=== PATIENT | male | born 1965 | race Caucasian/White ===

== ENCOUNTER 2019-09-07 19:20 | Emergency (ER) | payer OTHER ==
[~2019-09-07] VITALS: Ht 177.8 cm; Wt 81.6 kg
[2019-09-07 19:26] VITALS: BP 112/63
--- NOTE | 2019-09-07 19:30 | NUR ---
STEPHANIE SON TO [facility]
[2019-09-07] MEDS ORDERED: NACL 0.9% 1,000 ML IV ONE ×2 (19:35→21:00)
--- NOTE | 2019-09-07 19:45 | NUR ---
PT ASSESSMENT COMPLETE. SEIZURE PADS IN PLACE. BED IN LOWEST POSITION. WILL CONTINUE TO MONITOR.
[2019-09-07 20:12] LABS: ANION GAP 16.3 (8-16); CARBON DIOXIDE 24.7 mmol/L (21-32); CREATININE 1.4 mg/dL (0.6-1.3)
[2019-09-07 20:20] LABS: ALBUMIN 3.4 g/dL (3.4-5.0); TOTAL BILIRUBIN 0.4 mg/dL (0.0-1.0)
--- NOTE | 2019-09-07 20:45 | NUR ---
PT UP TO ROADTEST, PT GAIT NOTED TO BE UNSTEADY AT THIS TIME. WILL ATTEMPT TO ROADTEST AGAIN.
--- NOTE | 2019-09-07 21:00 | NUR ---
NO HOMELESS ASSESSMENT NECESSARY AT THIS TIME.
--- NOTE | 2019-09-07 21:00 | NUR ---
PT ALCOHOL LEVEL ABOVE 300. ERMD NOTIFIED. NEW ORDER FOR 1L NS BOLUS. ORDER CARRIED OUT.
--- NOTE | 2019-09-07 21:08 | NUR ---
PT YELLING AND AGGRESSIVE STATING " I WANNA LEAVE." PT UP AND AMBULATING WITH STEADY GAIT IN ER. ERMD NOTIFIED.
--- NOTE | 2019-09-07 21:15 | NUR ---
PT STATES HE HAS A RIDE HOME. TO A/W DISCHARGE PAPERWORK AT THIS TIME.
[2019-09-07 21:21] VITALS: BP 112/63
--- NOTE | 2019-09-07 21:21 | NUR ---
Patient discharged with v/s stable. Written and verbal after care instructions given and explained. Patient verbalized understanding. Ambulatory with steady gait. All questions addressed prior to discharge. Advised to follow up with PMD. PT PROVIDED W/ ALCOHOL RESOURCE PACKET AND BUS PASS.
== END 2019-09-07 21:21 | disposition home or self-care (01) ==
LOC: EDBD 19:20 → MED 19:20
DX: F10.129 Alcohol abuse with intoxication, unspecified (principal); I10 Essential (primary) hypertension; R56.9 Unspecified convulsions; Z88.6 Allergy status to analgesic agent
CPT/HCPCS: 36415; 80053; 99283; G0482; J7030

== ENCOUNTER 2020-05-04 17:36 | Emergency (ER) | payer OTHER ==
[~2020-05-04] VITALS: Ht 170.2 cm; Wt 71.7 kg
[2020-05-04 17:38] VITALS: BP 140/92
[2020-05-04 18:59] VITALS: BP 140/92
== END 2020-05-04 19:00 | disposition home or self-care (01) ==
LOC: MED 17:36
DX: S01.112A Laceration without foreign body of left eyelid and periocular area, initial encounter (principal); S09.8XXA Other specified injuries of head, initial encounter; M79.602 Pain in left arm; F10.129 Alcohol abuse with intoxication, unspecified; W18.39XA Other fall on same level, initial encounter; Y93.89 Activity, other specified; Y92.89 Other specified places as the place of occurrence of the external cause; Y99.8 Other external cause status; Y90.9 Presence of alcohol in blood, level not specified
CPT/HCPCS: 12001; 99283

== ENCOUNTER 2020-08-13 16:42 | Emergency (ER) | payer OTHER, SELFPAY ==
[~2020-08-13] VITALS: Ht 177.8 cm; Wt 77.1 kg
[2020-08-13 16:42] VITALS: BP 133/85
[~2020-08-13 16:42] MED LIST: FOLI1TAB90 PO; LEVE1000 PO; MAGN400T61 PO; THIA-34 PO
--- NOTE | 2020-08-13 16:47 | NUR ---
DR ASENCIO AT BEDSIDE EXAMINING PATIENT
[2020-08-13] MEDS ORDERED: BACITRACIN OINT 500 UNITS/GM PKT TP ONE (16:50)
--- NOTE | 2020-08-13 16:55 | NUR ---
55/M biba with c/o fall. Per EMS patient was discharged from a rehab today and consumed alcohol, patient states he tripped on a curb. Fall was unwitnessed, bystanders called 911, abrasions noted to forehead and nose, and healing laceration on left eyebrow. Bleeding controlled at this time, site is tender to touch. Patient describes it as a 10/10 constant pain to the face, denies LOC. Patient able to answer questions when spoken to.
--- NOTE | 2020-08-13 17:01 | NUR ---
PATIENT TAKEN TO CT VIA ACE
[2020-08-13] MEDS ORDERED: BACI1PAC6 TP (17:46)
--- NOTE | 2020-08-13 18:40 | NUR ---
Patient refusing to leave, security called to assist.
[2020-08-13 18:49] VITALS: BP 136/92
--- NOTE | 2020-08-13 18:50 | NUR ---
Patient discharged with v/s stable. Written and verbal after care instructions given and explained. Patient alert, oriented and verbalized understanding of instructions. Wheel Chair Assisted to lobby. All questions addressed prior to discharge. ID band removed. Patient advised to follow up with PMD. Rx of given. Patient educated on indication of medication including possible reaction and side effects. Opportunity to ask questions provided and answered.
== END 2020-08-13 18:49 | disposition home or self-care (01) ==
LOC: MED 16:42
DX: S01.419A Laceration without foreign body of unspecified cheek and temporomandibular area, initial encounter (principal); F10.129 Alcohol abuse with intoxication, unspecified; J45.909 Unspecified asthma, uncomplicated; I10 Essential (primary) hypertension; Z88.6 Allergy status to analgesic agent; Z86.73 Personal history of transient ischemic attack (TIA), and cerebral infarction without residual deficits; W19.XXXA Unspecified fall, initial encounter; Y93.89 Activity, other specified; Y92.89 Other specified places as the place of occurrence of the external cause; Y99.8 Other external cause status
CPT/HCPCS: 70450; 72125; 90471; 90715; 99285

== ENCOUNTER 2021-10-25 20:13 | Emergency (ER) | payer OTHER ==
[~2021-10-25] VITALS: Ht 175.3 cm; Wt 81.6 kg
[~2021-10-25 20:13] MED LIST changes: +BACI1PAC6 TP
--- NOTE | 2021-10-25 20:15 | NUR ---
Dr. Mike examining patient.
--- NOTE | 2021-10-25 20:16 | NUR ---
Patient waited in [place].
[2021-10-25 20:17] VITALS: BP 131/81
--- NOTE | 2021-10-25 20:26 | NUR ---
Blood for labwork drawn from left arm per machine iii coremaker. Patient tolerated well.
--- NOTE | 2021-10-25 20:33 | NUR ---
PT TAKEN TO CT
[2021-10-25 20:38] LABS: BASOPHILS % (AUTO) 0.3 % (0.0-2.0); EOSINOPHILS % (AUTO) 0.3 % (0.0-4.0); HEMOGLOBIN 13.8 g/dL (12.0-18.0); LYMPHOCYTES # (AUTO) 0.8 K/uL (2.0-11.5); LYMPHOCYTES % (AUTO) 10.8 % (20.5-51.1); MEAN CORPUSCULAR HEMOGLOBIN 34 pg (27-31); MEAN CORPUSCULAR HGB CONC 35 g/dL (33-37); MEAN CORPUSCULAR VOLUME 97.2 fL (80-94); MONOCYTES # (AUTO) 0.9 K/uL (0.8-1.0); MONOCYTES % (AUTO) 12.7 % (1.7-9.3); NEUTROPHILS # (AUTO) 5.6 K/uL (1.8-7.7); NEUTROPHILS % (AUTO) 75.9 % (42.2-75.2); PLATELET COUNT (AUTO) 104 K/uL (140-450); RED BLOOD CELL COUNT(AUTO) 4.11 MIL/uL (4.20-6.10); RED CELL DISTRIBUTION WIDTH 17.7 % (11.6-13.7); WHITE BLOOD COUNT (AUTO) 7.3 K/uL (4.8-10.8)
--- NOTE | 2021-10-25 20:40 | NUR ---
PT RETURN FROM CT TO ER LOBBY
[2021-10-25 20:54] LABS: ALBUMIN 4.2 g/dL (3.4-5.0); ANION GAP 22.3 (8-16); CARBON DIOXIDE 20.8 mmol/L (21-32); CREATININE 2.7 mg/dL (0.6-1.3); MAGNESIUM 1.7 mg/dL (1.8-2.4); POTASSIUM 3.1 mmol/L (3.5-5.1); TOTAL BILIRUBIN 1.7 mg/dL (0.0-1.0)
[2021-10-25] MEDS ORDERED: POTASSIUM CHLORIDE 10 MEQ TABER PO ONE (22:00)
[2021-10-25 22:20] VITALS: BP 128/80
--- NOTE | 2021-10-25 22:20 | NUR ---
Patient discharged with v/s stable. Written and verbal after care instructions given and explained. Patient verbalized understanding. Ambulatory with steady gait. All questions addressed prior to discharge. Advised to follow up with PMD. VSS, A/OX4, AMBULATORY, UNLABORED BREATHING, AND CALM DEMEANOR.
== END 2021-10-25 22:20 | disposition home or self-care (01) ==
LOC: MED 20:13
DX: R41.82 Altered mental status, unspecified (principal); F10.129 Alcohol abuse with intoxication, unspecified; E87.6 Hypokalemia; J45.909 Unspecified asthma, uncomplicated; I10 Essential (primary) hypertension; Z86.73 Personal history of transient ischemic attack (TIA), and cerebral infarction without residual deficits; Z79.899 Other long term (current) drug therapy; Z88.8 Allergy status to other drugs, medicaments and biological substances
CPT/HCPCS: 36415; 70450; 80053; 83735; 85025; 99284; G0482

== ENCOUNTER 2021-10-26 09:41 | Emergency (ER) | payer OTHER ==
[~2021-10-26] VITALS: Ht 175.3 cm; Wt 72.6 kg
--- NOTE | 2021-10-26 09:42 | NUR ---
STEPHANIE SON VIA GURNEY TO BED 03.
[2021-10-26 09:48] VITALS: BP 156/69
--- NOTE | 2021-10-26 10:15 | NUR ---
56 y/o male biba with c/o general weakness. Per EMS found on side of street. Abrasion/bruise observed to left episcopal. Pt states he hit his head on a fence, denies LOC. Reports legs are burning altough denies pain. Also, c/o eye discomfort, "seeing double", denies dizziness, denies lightheadedness or headache. Denies NVD, fever, chills, cp, or sob. Was seen at [facility] yesterday for altered mental status. PMH: Seizures, HTN ALL: NSAIDS
--- NOTE | 2021-10-26 10:33 | NUR ---
Dr Schmidt at bedside for evaluation
[2021-10-26] MEDS ORDERED: NACL 0.9% 1,000 ML IV ONE ×2 (10:40→12:45)
--- NOTE | 2021-10-26 10:46 | NUR ---
lab at bedside
[2021-10-26 11:00] LABS: BASOPHILS % (AUTO) 0.4 % (0.0-2.0); EOSINOPHILS % (AUTO) 0.1 % (0.0-4.0); HEMATOCRIT 39.6 % (36-52); HEMOGLOBIN 13.3 g/dL (12.0-18.0); LYMPHOCYTES # (AUTO) 0.5 K/uL (2.0-11.5); LYMPHOCYTES % (AUTO) 7.4 % (20.5-51.1); MEAN CORPUSCULAR HEMOGLOBIN 33 pg (27-31); MEAN CORPUSCULAR HGB CONC 34 g/dL (33-37); MEAN CORPUSCULAR VOLUME 99.3 fL (80-94); MONOCYTES # (AUTO) 1.4 K/uL (0.8-1.0); MONOCYTES % (AUTO) 19.7 % (1.7-9.3); NEUTROPHILS # (AUTO) 5.3 K/uL (1.8-7.7); NEUTROPHILS % (AUTO) 72.4 % (42.2-75.2); PLATELET COUNT (AUTO) 101 K/uL (140-450); RED BLOOD CELL COUNT(AUTO) 3.99 MIL/uL (4.20-6.10); RED CELL DISTRIBUTION WIDTH 17.5 % (11.6-13.7); WHITE BLOOD COUNT (AUTO) 7.4 K/uL (4.8-10.8)
--- NOTE | 2021-10-26 11:05 | NUR ---
Attempted to collect urine sample via urinal. pt urinated on floor at bedside, unable to provide urine at this time.
[2021-10-26 11:19] LABS: ALBUMIN 3.9 g/dL (3.4-5.0); ANION GAP 24.1 (8-16); ASPARTATE AMINOTRANSFERASE 115 U/L (15-37); CARBON DIOXIDE 18.8 mmol/L (21-32); CHLORIDE 95 mmol/L (98-107); CREATININE 2.5 mg/dL (0.6-1.3); GFR ARICAN-AMERICAN 35 mL/min (>90); GLUCOSE 62 mg/dL (74-106); POTASSIUM 3.9 mmol/L (3.5-5.1); SALICYLATE < 2.8 mg/dL (2.8-20.0); SODIUM SERUM 134 mmol/L (136-145); TOTAL BILIRUBIN 2.2 mg/dL (0.0-1.0); UREA NITROGEN, BLOOD 33 mg/dL (7-18)
[2021-10-26 11:43] LABS: ACETAMINOPHEN < 0.5 ug/ml (10-30)
[2021-10-26 13:02] LABS: BARBITURATE, URINE NEGATIVE ng/ml (NEG <=200); BENZODIAZEPINE, URINE NEGATIVE ng/mL (NEG <=200); CANNABINOID, URINE NEGATIVE ng/mL (NEG <=50); COCAINE, URINE NEGATIVE ng/mL (NEG <=300); OPIATE, URINE NEGATIVE ng/mL (NEG <=2000); PHENCYCLIDINE SCREEN,URINE NEGATIVE ng/mL (NEG <=25)
[2021-10-26 13:35] VITALS: BP 161/102
--- NOTE | 2021-10-26 13:35 | NUR ---
Patient discharged with v/s stable. Written and verbal after care instructions given and explained. Patient verbalized understanding. Ambulatory with steady gait. All questions addressed prior to discharge. Advised to follow up with PMD.
== END 2021-10-26 13:35 | disposition home or self-care (01) ==
LOC: MED 09:41
DX: M62.82 Rhabdomyolysis (principal); N18.9 Chronic kidney disease, unspecified; E86.0 Dehydration; J45.909 Unspecified asthma, uncomplicated; I10 Essential (primary) hypertension; Z86.73 Personal history of transient ischemic attack (TIA), and cerebral infarction without residual deficits; Z79.1 Long term (current) use of non-steroidal anti-inflammatories (NSAID)
CPT/HCPCS: 36415; 70450; 80053; 80305; 82550; 82553; 85025; 93005; 96360; 99285; G0480; G0482

== ENCOUNTER 2021-10-26 18:45 | Emergency (ER) | payer OTHER ==
[~2021-10-26] VITALS: Ht 177.8 cm; Wt 79.4 kg
[2021-10-26 19:25] VITALS: BP 133/88
--- NOTE | 2021-10-26 19:25 | NUR ---
TO LOBBY A/W BED AMBULATORY
--- NOTE | 2021-10-26 19:40 | NUR ---
HANDED PATIENT FOOD PER RQ.
--- NOTE | 2021-10-26 19:45 | NUR ---
Patient discharged with v/s stable. Written and verbal after care instructions given and explained. Patient verbalized understanding. Ambulatory with steady gait. All questions addressed . Advised to follow up with PMD.
[2021-10-26 19:56] VITALS: BP 133/88
== END 2021-10-26 19:45 | disposition home or self-care (01) ==
LOC: MED 18:45
DX: J11.1 Influenza due to unidentified influenza virus with other respiratory manifestations (principal); I10 Essential (primary) hypertension
CPT/HCPCS: 99281

== ENCOUNTER 2021-10-26 23:55 | Emergency (ER) | payer OTHER ==
[~2021-10-26] VITALS: Ht 177.8 cm; Wt 81.6 kg
[2021-10-26 23:58] VITALS: BP 158/95
[2021-10-27 05:39] VITALS: BP 158/95
== END 2021-10-27 05:25 | disposition home or self-care (01) ==
LOC: MED 23:55
DX: M79.605 Pain in left leg (principal); M79.604 Pain in right leg; F10.129 Alcohol abuse with intoxication, unspecified; Y90.9 Presence of alcohol in blood, level not specified; J45.909 Unspecified asthma, uncomplicated; I10 Essential (primary) hypertension; I25.10 Atherosclerotic heart disease of native coronary artery without angina pectoris; Z79.1 Long term (current) use of non-steroidal anti-inflammatories (NSAID)
CPT/HCPCS: 99283